=== PATIENT | male | born 1990 | race Hispanic/Latino ===

== ENCOUNTER 2019-02-18 11:23 | Emergency (ER) | payer MEDICAID ==
[2019-02-18 11:27] VITALS: BP 116/73; PULSE 94; RESP 16; TEMP 98.2; O2SAT 98
[2019-02-18 11:28] VITALS: BMI 21.9
[2019-02-18] MEDS ORDERED: Sodium Chloride 0.9% 1,000 ML IV STA (11:56)
[2019-02-18 12:19] LABS: BASO # 0.1 K/uL (0.0-0.2); BASO % 0.3 % (0.0-2.0); EOS # 0.1 K/uL (0.0-0.7); EOS % 0.4 % (0.0-4.0); HEMOGLOBIN 13.5 g/dL (12.0-18.0); LYMPH # 2.7 K/uL (1.0-4.3); LYMPH % 18.7 % (20.0-40.0); MEAN CELL VOLUME 87.6 fl (80.0-94.0); MEAN CORPUSCULAR HEMOGLOBIN 29.9 pg (27.0-31.0); MEAN CORPUSCULAR HGB CONC 34.2 g/dL (33.0-37.0); MEAN PLATELET VOLUME 7.2 fl (7.2-11.7); MONO # 1.6 K/uL (0.0-0.8); MONO % 10.6 % (0.0-10.0); NEUT # 10.3 K/uL (1.8-7.0); PLATELET COUNT 280 K/uL (130-400); RBC 4.51 Mil/uL (4.40-5.90); RED CELL DISTRIBUTION WIDTH 12.8 % (11.5-14.5); WHITE BLOOD COUNT 14.7 K/uL (4.8-10.8)
[2019-02-18 12:44] LABS: ALB/GLOB RATIO 1.4 (1.0-2.1); ALBUMIN 3.8 g/dL (3.5-5.0); ALT/SGPT 42 U/L (21-72); AST/SGOT 23 U/L (17-59); BLOOD UREA NITROGEN 25 mg/dl (9-20); CALCIUM 8.4 mg/dL (8.4-10.2); GFR NON-AFRICAN AMERICAN > 60
[2019-02-18 12:49] LABS: ANISOCYTOSIS SLIGHT; BANDS 2 % (0-2); LARGE PLATELETS PRESENT; LYMPHOCYTE 28 % (20-50); MONOCYTE 4 % (0-10); MYELOCYTE 1 % (0-0); NEUTROPHIL 65 % (42-75); PLATELET ESTIMATE NORMAL (NORMAL); TOTAL CELLS COUNTED 100
--- NOTE | 2019-02-18 13:31 | US ---
Date of service: 02/18/2019 PROCEDURE: Bilateral lower extremity venous duplex Doppler. HISTORY: bilateral lower extremity pain, recent hospital ad COMPARISON: None available. TECHNIQUE: Bilateral common femoral, superficial femoral, popliteal and posterior tibial veins were evaluated. Flow was assessed with color Doppler, compressibility, assessment of phasic flow and augmentation response. FINDINGS: COMMON FEMORAL VEIN: Right CFV: Unremarkable. Left CFV: Unremarkable. SUPERFICIAL FEMORAL VEIN: Right SFV: Unremarkable. Left SFV: Unremarkable. POPLITEAL VEIN: Right Popliteal: Unremarkable. Left Popliteal: Unremarkable. POSTERIOR TIBIAL VEIN: Right PTV: Unremarkable. Left PTV: Unremarkable. OTHER FINDINGS: None. IMPRESSION: No evidence of deep venous thrombosis.
--- NOTE | 2019-02-18 15:08 | ED PDOC ---
Lower Extremity Pain/Injury Time Seen by Provider: 02/18/19 11:24 Chief Complaint (Nursing): Lower Extremity Problem/Injury Chief Complaint (Provider): Bilateral leg pain, weakness History Per: Patient History/Exam Limitations: no limitations Onset/Duration Of Symptoms: Hrs Additional Complaint(s): 28 yo male recently diagnosed with US (10/05) presents for evaluation of bilateral leg pain. PT was out drinking alcohol last night and states when he woke up he felt like both his legs were weak with pain posterior. PT was admitted to /S for UC and stent placement for kidney stone. Pt was discharged on 02/16/19. Pt admitted for 1 week and reports being on prednisone. PT reports limited ambulation in hospital and states he had an electrolyte imbalance. Pt denies fever/chills. PT denies abdominal pain. Past Medical History Reviewed: Historical Data, Nursing Documentation, Vital Signs Vital Signs: Last Vital Signs Temp 98.2 F 02/18/19 11:27 Pulse 94 H 02/18/19 11:27 Resp 16 02/18/19 11:27 BP 116/73 02/18/19 11:27 Pulse Ox 98 02/18/19 11:27 Primary Care Provider: Non [facility] Provider, - Medical History PMH: Depression, Kidney Stones, Chronic Kidney Disease - Surgical History Surgical History: No Surg Hx - Family History Family History: States: No Known Family Hx - Living Arrangements Living Arrangements: With Family - Social History Current smoker - smoking cessation education provided: No - Home Medications Home Medications: Ambulatory Orders Medication Instructions Recorded Methylprednisolone [Medrol] 4 mg PO TITR #1 unit 02/18/19 - Allergies Allergies/Adverse Reactions: Allergies Allergy/AdvReac Type Severity Reaction Status Date / Time No Known Allergies Allergy Verified 02/18/19 11:39 Review of Systems ROS Statement: Except As Marked, All Systems Reviewed And Found Negative Constitutional: Negative for: Fever, Chills, Sweats Gastrointestinal: Negative for: Nausea, Vomiting, Abdominal Pain Physical Exam - Reviewed Nursing Documentation Reviewed: Yes Vital Signs Reviewed: Yes - Physical Exam Appears: Positive for: Well, Non-toxic, No Acute Distress Head Exam: Positive for: ATRAUMATIC, NORMAL INSPECTION, NORMOCEPHALIC Skin: Positive for: Normal Color, Warm, DRY Eye Exam: Positive for: Normal appearance ENT: Positive for: Normal ENT Inspection Neck: Positive for: Normal, Painless ROM Cardiovascular/Chest: Positive for: Regular Rate, Rhythm Respiratory: Positive for: Normal Breath Sounds. Negative for: Accessory Muscle Use, Respiratory Distress Back: Positive for: Normal Inspection Extremity: Positive for: Normal ROM, Tenderness (Generalized knee tenderness ). Negative for: Deformity, Swelling Neurological/Psych: Positive for: Awake, Alert, Normal Tone - Laboratory Results Result Diagrams: 02/18/19 12:00 02/18/19 12:00 Lab Results: Total Bilirubin 0.4 mg/dl (0.2-1.3) 02/18/19 12:00 AST 23 U/L (17-59) 02/18/19 12:00 ALT 42 U/L (21-72) 02/18/19 12:00 Alkaline Phosphatase 47 U/L (38-126) 02/18/19 12:00 Total Protein 6.4 G/DL (6.3-8.2) 02/18/19 12:00 Albumin 3.8 g/dL (3.5-5.0) 02/18/19 12:00 Globulin 2.6 gm/dL (2.2-3.9) 02/18/19 12:00 Albumin/Globulin Ratio 1.4 (1.0-2.1) 02/18/19 12:00 - ECG O2 Sat by Pulse Oximetry: 98 Medical Decision Making Medical Decision Making: Pt reports decreased weakness and only know pain on re-evaluation after IV fluids. US (-) for DVT Disposition - Clinical Impression Clinical Impression: Knee pain - Patient ED Disposition Is Patient to be Admitted: No Counseled Patient/Family Regarding: Diagnosis, Need For Followup, Rx Given - Disposition Disposition: Routine/Home Disposition Time: 15:02 Condition: GOOD Prescriptions: Methylprednisolone [Medrol] 4 mg PO TITR #1 unit Instructions: Knee Pain
== END 2019-02-18 15:16 | disposition home or self-care (01) ==
LOC: H.ER 11:23
DX: M25.569 Pain in unspecified knee (principal); Z86.59 Personal history of other mental and behavioral disorders; N18.9 Chronic kidney disease, unspecified; Z87.442 Personal history of urinary calculi
CPT/HCPCS: 80053; 82550; 83735; 84100; 85025; 93970; 96360; 99283; J7030